=== PATIENT | male | born 1925 | race Caucasian/White ===

== ENCOUNTER 2016-10-08 14:17 | Inpatient (IN) | payer OTHER, MEDICARE ==
[~2016-10-08 14:17] MED LIST: VANCOMYCIN HCL INJ 1000 MG VIAL IV ONE
--- NOTE | 2016-10-08 16:03 | ER Document Report ---
ED Medical Screen (RME) - General Chief Complaint: Urinary Incontinence Stated Complaint: POSSIBLE UTI Time seen by provider: 16:03 TRAVEL OUTSIDE OF THE [place] IN LAST 30 DAYS: No - HPI Patient complains to provider of: POSSIBLE UTI, NOT ACTING USUAL SELF Onset: Last week Onset/Duration: Gradual Quality of pain: No pain Severity: None Pain Level: Denies Exacerbated by: Denies Relieved by: Denies Recently seen / treated by doctor: Yes Notes: 10/08/16 16:15 [facility], SENT TO ER FOR EVALUATION, PT SEEMS CONFUSED, NOT ACTING USUAL SELF. HAS BEEN VOIDING ON SELF, NOT EATING WELL. - Related Data Smoking: Non-smoker Frequency of alcohol use: None Drug Abuse: None Pertinent History: POOR HISTORIAM, FAMILY NOT SURE OF MEDICAL HX. Allergies/Adverse Reactions: No Known Allergies Allergy (Verified 10/08/16 14:49) Past Medical History - Past Medical History Cardiac Medical History: Reports: Hx Hypertension Pulmonary Medical History: Denies: Hx Tuberculosis Neurological Medical History: Denies: Hx Seizures Renal/ Medical History: Reports: Hx Renal Insufficiency Musculoskeltal Medical History: Reports Hx Arthritis Psychiatric Medical History: Reports: Hx Depression Past Surgical History: Reports: Hx Orthopedic Surgery - Immunizations Hx Diphtheria, Pertussis, Tetanus Vaccination: Yes Physical Exam - Vital signs Vitals: Temp Pulse Resp BP Pulse Ox 97.9 F 110 H 18 135/56 H 97 10/08/16 14:37 10/08/16 14:37 10/08/16 14:37 10/08/16 14:37 10/08/16 14:37 Course - Vital Signs Vital signs: Temp Pulse Resp BP Pulse Ox 97.9 F 110 H 18 135/56 H 97 10/08/16 14:37 10/08/16 14:37 10/08/16 14:37 10/08/16 14:37 10/08/16 14:37
[2016-10-08 16:50] LABS: HEMATOCRIT 29.7 % (37.9-51.0); HEMOGLOBIN 10.1 g/dL (13.5-17.0); HGB HCT DIFFERENCE 0.6; MEAN CORPUSCULAR HEMOGLOBIN 29.6 pg (27.0-33.4); MEAN CORPUSCULAR HGB CONC 33.9 g/dL (32.0-36.0); MEAN CORPUSCULAR VOLUME 87 fl (80-97); RED CELL DISTRIBUTION WIDTH 14.8 % (11.5-14.0)
[2016-10-08 17:04] LABS: ALANINE AMINOTRANSFERASE 51 U/L (21-72); ALBUMIN 2.7 g/dL (3.5-5.0); ALKALINE PHOSPHATASE 123 U/L (38-126); ANION GAP 17 (5-19); ASPARTATE AMINO TRANSFERASE 48 U/L (17-59); BILIRUBIN,TOTAL 0.8 mg/dL (0.2-1.3); BLOOD UREA NITROGEN 85 mg/dL (7-20); CALCIUM 8.2 mg/dL (8.4-10.2); CARBON DIOXIDE 20 mmol/L (22-30); CHLORIDE 101 mmol/L (98-107); CREATINE KINASE 48 U/L (55-170); CREATININE RESULT 3.13 mg/dL (0.52-1.25); GLUCOSE 111 mg/dL (75-110); POTASSIUM 5.3 mmol/L (3.6-5.0); SODIUM 138.1 mmol/L (137-145); TOTAL PROTEIN 6.3 g/dL (6.3-8.2)
[2016-10-08 17:06] LABS: APPEARANCE,URINE SLIGHTLY-CLOUDY; BILIRUBIN,URINE NEGATIVE (NEGATIVE); GLUCOSE, URINE NEGATIVE (NEGATIVE); KETONES,URINE NEGATIVE (NEGATIVE); LEUKOCYTE ESTERASE,URINE NEGATIVE (NEGATIVE); NITRITE,URINE NEGATIVE (NEGATIVE); PROTEIN,URINE 30 mg/dL (NEGATIVE); URINE SPECIFIC GRAVITY 1.017
[2016-10-08 17:16] LABS: CREATINE KINASE MB 0.97 ng/mL (<4.55)
[2016-10-08 17:21] LABS: TROPONIN I 0.06 ng/mL
[2016-10-08 17:28] LABS: BAND NEUTROPHILS % (MANUAL) 1 % (3-5); BASOPHILS % (MANUAL) 0 % (0-2); EOSINOPHILS % (MANUAL) 0 % (0-6); LYMPHOCYTES % (MANUAL) 3 % (13-45); TOTAL CELLS COUNTED 100
[2016-10-08 17:31] LABS: SMUDGE CELLS PRESENT; TOXIC GRANULATION 1+; TOXIC VACUOLATION PRESENT
[2016-10-08 17:32] LABS: ANISOCYTOSIS SLIGHT; HELMET CELLS SLIGHT; PLATELET CLUMPS PRESENT; POIKILOCYTOSIS 1+; POLYCHROMASIA SLIGHT; SCHISTOCYTES SLIGHT
[2016-10-08 17:34] LABS: TARGET CELLS 3+
[2016-10-08 17:38] LABS: WHITE BLOOD COUNT 41.8 10^3/uL (4.0-10.5)
[2016-10-08] MEDS ORDERED: VANCOMYCIN HCL INJ 1000 MG VIAL IV ONE (18:02)
[2016-10-08] MEDS ORDERED: LEVOFLOXACIN 750 MG/D5W RTU 150 ML IV ONE (18:02)
[2016-10-08] MEDS ORDERED: CEFOTAXIME INJ 1 GM VIAL IV ONE ×2 (18:02→23:45)
--- NOTE | 2016-10-08 18:32 | ER Document Report ---
ED General - General Chief Complaint: Urinary Incontinence Stated Complaint: POSSIBLE UTI Time seen by provider: 18:30 Mode of Arrival: Medic Information source: Patient, Relative Notes: This is an 89-year-old man with a history of hypertension who is brought in by EMS with increased weakness, cough, difficulty ambulating. The patient lives alone and fell 2 weeks ago and was evaluated by EMS and did not go to the hospital at that time. Family notes that he has had significant decline in activity and has become confused since that fall. They also note that his had an increased cough and appears shortness of breath at times. Symptoms had progressively worsened and he was evaluated at the [place] by Dr. Rivera and referred to the ER. TRAVEL OUTSIDE OF THE [place] IN LAST 30 DAYS: No - HPI Onset: Other Onset/Duration: Gradual - Prior to weeks Quality of pain: No pain Severity: None Pain Level: Denies Associated symptoms: Chills, Nonproductive cough, Fever, Shortness of breath Exacerbated by: Movement, Walking Relieved by: Denies Similar symptoms previously: No Recently seen / treated by doctor: Yes - Related Data Allergies/Adverse Reactions: No Known Allergies Allergy (Verified 10/08/16 14:49) Home Medications: Current Home Medications Calcitriol [Rocaltrol 0.25 mcg Capsule] 0.25 mcg PO DAILY 10/08/16 [History] Cyanocobalamin (Vitamin B-12) [Vitamin B-12 1000 mcg Tablet] 1,000 mcg PO DAILY 10/08/16 [History] Fluoxetine HCl [Prozac] 40 mg PO DAILY 10/08/16 [History] Lisinopril [Prinivil 10 mg Tablet] 20 mg PO DAILY 10/08/16 [History] Tramadol HCl [Ultram 50 mg Tablet] 50 mg PO Q8HP PRN 10/08/16 [History] Past Medical History - General Information source: Parent - Social History Smoking Status: Smoker,Current Status Unk Cigarette use (# per day): No Chew tobacco use (# tins/day): No Smoking Education Provided: No Frequency of alcohol use: None Drug Abuse: None Lives with: Family Family History: Reviewed & Not Pertinent Patient has suicidal ideation: No Patient has homicidal ideation: No - Past Medical History Cardiac Medical History: Reports: Hx Hypertension Pulmonary Medical History: Denies: Hx Tuberculosis Neurological Medical History: Denies: Hx Seizures Renal/ Medical History: Reports: Hx Renal Insufficiency Musculoskeltal Medical History: Reports Hx Arthritis Psychiatric Medical History: Reports: Hx Depression Past Surgical History: Reports: Hx Orthopedic Surgery - Immunizations Hx Diphtheria, Pertussis, Tetanus Vaccination: Yes Hx Pneumococcal Vaccination: 03/05/14 Review of Systems - Review of Systems Constitutional: denies: Chills, Fever EENT: No symptoms reported Cardiovascular: See HPI Respiratory: See HPI Gastrointestinal: No symptoms reported Genitourinary: No symptoms reported Male Genitourinary: No symptoms reported Musculoskeletal: No symptoms reported Skin: No symptoms reported Hematologic/Lymphatic: No symptoms reported Neurological/Psychological: Confusion, Weakness Physical Exam - Vital signs Vitals: Temp Pulse Resp BP Pulse Ox 97.9 F 110 H 18 135/56 H 97 10/08/16 14:37 10/08/16 14:37 10/08/16 14:37 10/08/16 14:37 10/08/16 14:37 Notes: Physical exam: GENERAL: 89-year-old man, alert and oriented 3, does appear weak and dehydrated HEAD: Atraumatic, normocephalic. EYES: Pupils equal round and reactive to light, extraocular movements intact, sclera anicteric, conjunctiva are normal. ENT: oropharynx clear without exudates. Dry mucous membranes. NECK: Normal range of motion, supple without lymphadenopathy or JVD. LUNGS: Decreased breath sounds in the left side. HEART: Regular rate and rhythm without murmurs, rubs or gallops. ABDOMEN: Soft, nontender, normoactive bowel sounds. No guarding, no rebound. No masses appreciated. EXTREMITIES: Normal range of motion, no pitting or edema. No clubbing or cyanosis. NEUROLOGICAL: Cranial nerves II through XII grossly intact. Normal speech, gait not tested PSYCH: Normal mood, normal affect. SKIN: Warm, Dry, normal turgor, no rashes or lesions noted. Course - Vital Signs Vital signs: Temp Pulse Resp BP Pulse Ox 97.9 F 110 H 18 143/90 H 96 10/08/16 14:37 10/08/16 14:37 10/08/16 19:01 10/08/16 19:01 10/08/16 19:01 - Laboratory Result Diagrams: 10/08/16 16:25 10/08/16 16:25 Laboratory results interpreted by me: 10/08/16 10/08/16 10/08/16 16:25 16:25 16:25 WBC 41.8 H* RBC 3.40 L Hgb 10.1 L Hct 29.7 L RDW 14.8 H Plt Count 667 H Seg Neuts % (Manual) 86 H Band Neutrophils % 1 L Lymphocytes % (Manual) 3 L Abs Neuts (Manual) 36.4 H Abs Monocytes (Manual) 3.8 H Potassium 5.3 H Carbon Dioxide 20 L BUN 85 H Creatinine 3.13 H Est GFR ( Amer) 23 L Est GFR (Non-Af Amer) 19 L Glucose 111 H Calcium 8.2 L Creatine Kinase 48 L Albumin 2.7 L Urine Protein 30 H Urine Urobilinogen 2.0 H - Diagnostic Test Radiology reviewed: Image reviewed, Reports reviewed - Chest x-ray and CT show pneumonia to the right lung with pleural effusion. CT of the head shows chronic changes Critical Care Note - Critical Care Note Total time excluding time spent on procedures (mins): 60 Discharge - Discharge Clinical Impression: pneumonia, dehydration Condition: Serious Disposition: ADMITTED INPATIENT Admitting Provider: Hospitalist - Dr Segura Unit Admitted: [facility]
[2016-10-08] MEDS ORDERED: ACETAMINOPHEN 325 MG TABLET PO PRN (18:50)
[2016-10-08] MEDS ORDERED: ONDANSETRON 4 MG TAB.RAPDIS PO PRN (18:50)
[2016-10-08] MEDS ORDERED: ALBUTEROL SULFATE 0.083% NEB 2.5 MG/3 ML AMPUL NEB PRN (18:50)
[2016-10-08] MEDS ORDERED: TRAMADOL HCL 50 MG TABLET PO PRN (18:55)
[2016-10-08] MEDS ORDERED: ENOXAPARIN SODIUM INJ 30 MG/0.3 ML DISP.SYRIN SUBCUT ONE ×2 (19:00→23:45)
--- NOTE | 2016-10-08 19:09 | PDOC H&P ---
History of Present Illness Admission Date/PCP: 10/08/2016. Patient is followed at the [place] [facility] Patient complains of: Pneumonia History of Present Illness: AD LEÓN is a 89 year old male who is followed at the [place] [facility] who presents with pneumonia. The patient reports that 2 weeks ago he fell down was on the ground for an unspecified period of time. Difficulty getting back up had called EMS. After that time he has Antonietta bed quite a bit has been given a very little. He reports she's felt more fatigued and has had a nonproductive cough. Denies have any fevers or chills. He also has had some right-sided pleuritic chest pain. Patient presented to the [place] [facility] today and he was sent here for further evaluation. He is found to have a right-sided pneumonia along with a probable pleural effusion. The patient also is noted have an elevated white blood cell count and he denies any history of any blood dyscrasias previously. Past Medical History Cardiac Medical History: Reports: Hypertension Pulmonary Medical History: Reports: None Denies: Tuberculosis EENT Medical History: Reports: None Neurological Medical History: Denies: Seizures Endocrine Medical History: Reports: None Renal/ Medical History: Reports: Chronic Kidney Disease Malignancy Medical History: Reports: None GI Medical History: Reports: None Musculoskeltal Medical History: Reports: Arthritis Skin Medical History: Reports: None Psychiatric Medical History: Reports: Depression Infectious Medical History: Reports: None Past Surgical History Past Surgical History: Reports: Orthopedic Surgery Social History Smoking Status: Former Smoker Frequency of Alcohol Use: Heavy - None for the last 2 weeks however. Hx Recreational Drug Use: No Drugs: None Hx Prescription Drug Abuse: No - Advance Directive Resuscitation Status: Full Code Family History Family History: Mother in her 70s and had no chronic health problems. Father at a young age during World War II Parental Family History Reviewed: Yes Children Family History Reviewed: No Sibling(s) Family History Reviewed.: No Medication/Allergy Home Medications: Fluoxetine HCl [Prozac] 40 mg PO DAILY 11/11/13 Tramadol HCl [Ultram 50 mg Tablet] 50 mg PO TIDP PRN 03/02/14 Hydrocodone Bit/Acetaminophen [Hydrocodon-Acetaminophen 5-325] 1 each PO Q6H Lisinopril 20 mg PO DAILY 08/24/14 Sulfamethoxazole/Trimethoprim [Bactrim Ds Tablet] 1 each PO BID #20 tablet 08/24 Calcitriol 1 cap PO DAILY 09/04/14 Cyanocobalamin (Vitamin B-12) [B-12] 1,000 mcg PO DAILY 09/04/14 Allergies/Adverse Reactions: No Known Allergies Allergy (Verified 10/08/16 14:49) Review of Systems Constitutional: PRESENT: fatigue, weakness. ABSENT: fever(s), headache(s), weight gain, weight loss Eyes: ABSENT: visual disturbances Ears: ABSENT: hearing changes Cardiovascular: PRESENT: chest pain - Right-sided pleuritic chest pain., dyspnea on exertion. ABSENT: edema, orthropnea, palpitations Respiratory: PRESENT: cough, dyspnea, sputum. ABSENT: hemoptysis Gastrointestinal: ABSENT: abdominal pain, constipation, diarrhea, hematemesis, hematochezia, nausea, vomiting Genitourinary: ABSENT: dysuria, hematuria Musculoskeletal: PRESENT: other - Right-sided pleuritic chest pain. Integumentary: ABSENT: rash, wounds Neurological: ABSENT: abnormal gait, abnormal speech, confusion, dizziness, focal weakness, syncope Psychiatric: PRESENT: depression Endocrine: ABSENT: cold intolerance, heat intolerance, polydipsia, polyuria Hematologic/Lymphatic: ABSENT: easy bleeding, easy bruising Physical Exam Vital Signs: Temp Pulse Resp BP Pulse Ox 97.9 F 110 H 18 135/56 H 97 10/08/16 14:37 10/08/16 14:37 10/08/16 14:37 10/08/16 14:37 10/08/16 14:37 Intake & Output 10/07/16 10/08/16 10/09/16 06:59 06:59 06:59 Weight 101.2 kg General appearance: PRESENT: no acute distress, disheveled Head exam: PRESENT: atraumatic, normocephalic Eye exam: PRESENT: conjunctiva pink, EOMI, PERRLA. ABSENT: scleral icterus Ear exam: PRESENT: normal external ear exam Mouth exam: PRESENT: moist, tongue midline Neck exam: ABSENT: carotid bruit, JVD, lymphadenopathy, thyromegaly Respiratory exam: PRESENT: decreased breath sounds - Decreased breath sounds in the right base., rales - Right lung. Cardiovascular exam: PRESENT: RRR. ABSENT: diastolic murmur, rubs, systolic murmur Pulses: PRESENT: normal dorsalis pedis pul Vascular exam: PRESENT: normal capillary refill GI/Abdominal exam: PRESENT: normal bowel sounds, soft. ABSENT: distended, guarding, mass, organolmegaly, rebound, tenderness Rectal exam: PRESENT: deferred Extremities exam: ABSENT: calf tenderness, clubbing, pedal edema Neurological exam: PRESENT: alert, awake, oriented to person, oriented to place , oriented to time, oriented to situation, CN II-XII grossly intact. ABSENT: motor sensory deficit Psychiatric exam: PRESENT: appropriate affect Skin exam: PRESENT: dry, intact, warm. ABSENT: cyanosis, rash Results Laboratory Results: 10/08/16 16:25 10/08/16 16:25 10/08/16 10/08/16 10/08/16 16:25 16:25 16:25 WBC 41.8 H* RBC 3.40 L Hgb 10.1 L Hct 29.7 L MCV 87 MCH 29.6 MCHC 33.9 RDW 14.8 H Plt Count 667 H Seg Neutrophils % Not Reportable Lymphocytes % Not Reportable Monocytes % Not Reportable Eosinophils % Not Reportable Basophils % Not Reportable Absolute Neutrophils Not Reportable Absolute Lymphocytes Not Reportable Absolute Monocytes Not Reportable Absolute Eosinophils Not Reportable Absolute Basophils Not Reportable Sodium 138.1 Potassium 5.3 H Chloride 101 Carbon Dioxide 20 L Anion Gap 17 BUN 85 H Creatinine 3.13 H Est GFR ( Amer) 23 L Est GFR (Non-Af Amer) 19 L Glucose 111 H Calcium 8.2 L Total Bilirubin 0.8 AST 48 ALT 51 Alkaline Phosphatase 123 Total Protein 6.3 Albumin 2.7 L Urine Color YELLOW Urine Appearance SLIGHTLY-CLOUDY Urine pH 5.0 Ur Specific [place] 1.017 Urine Protein 30 H Urine Glucose (UA) NEGATIVE Urine Ketones NEGATIVE Urine Blood NEGATIVE Urine Nitrite NEGATIVE Ur Leukocyte Esterase NEGATIVE Urine WBC (Auto) 1 Urine RBC (Auto) 1 10/08/16 10/08/16 16:25 16:25 Creatine Kinase 48 L CK-MB (CK-2) 0.97 Troponin I 0.060 Impressions: Chest X-Ray 10/08/16 16:12 IMPRESSION: Moderate-large right lower lobar pneumonia/ effusion. Recommend continued radiologic surveillance including follow-up radiographs in 7-12 weeks. Assessment & Plan - Diagnosis (1) Pneumonia Is this a current diagnosis for this admission?: YesPlan: Patient has right-sided pneumonia with probable effusion. He has been in bed recently and the possibility of the patient having a pulmonary embolism is considered however given his elevated white count generalized fatigue diagnosis of pneumonia is more likely. We will treat him with Levaquin for presumed gram- positive cocci pneumonia. If he does not improve we will obtain a chest CT to evaluate for possible effusion requiring thoracentesis. (2) Hypertension Is this a current diagnosis for this admission?: YesPlan: We will hold the lisinopril for now in light of his blood pressure being normal and the elevated creatinine. (3) Chronic renal failure, stage 4 (severe) Is this a current diagnosis for this admission?: YesPlan: Patient has stage IV chronic renal failure. He also has acute worsening. We will give IV fluids overnight and watch closely. - Time Time Spent: 50 to 70 Minutes - Inpatient Certification Medical Necessity: Need For IV Fluids, Need for IV Antibiotics
[2016-10-08] MEDS ORDERED: LEVOFLOXACIN 750 MG/D5W RTU 750 MG/150 ML RTUPB IV SCH (22:00)
[2016-10-09] MEDS ORDERED: VANCOMYCIN HCL INJ 1000 MG VIAL ONE (04:10)
[2016-10-09 07:47] LABS: HEMATOCRIT 25.9 % (37.9-51.0); HEMOGLOBIN 9.1 g/dL (13.5-17.0); HGB HCT DIFFERENCE 1.4; MEAN CORPUSCULAR HEMOGLOBIN 30.4 pg (27.0-33.4); MEAN CORPUSCULAR HGB CONC 35.2 g/dL (32.0-36.0); MEAN CORPUSCULAR VOLUME 86 fl (80-97); RED CELL DISTRIBUTION WIDTH 14.4 % (11.5-14.0)
[2016-10-09 07:52] LABS: ANION GAP 17 (5-19); BLOOD UREA NITROGEN 80 mg/dL (7-20); CALCIUM 7.6 mg/dL (8.4-10.2); CARBON DIOXIDE 17 mmol/L (22-30); CHLORIDE 105 mmol/L (98-107); CREATININE RESULT 2.77 mg/dL (0.52-1.25); GLUCOSE 83 mg/dL (75-110); POTASSIUM 4.5 mmol/L (3.6-5.0); SODIUM 138.6 mmol/L (137-145)
[2016-10-09 08:02] LABS: WHITE BLOOD COUNT 37.4 10^3/uL (4.0-10.5)
[2016-10-09 08:03] LABS: BASOPHILS % (MANUAL) 0 % (0-2); EOSINOPHILS % (MANUAL) 0 % (0-6); LYMPHOCYTES % (MANUAL) 5 % (13-45); TOTAL CELLS COUNTED 100
[2016-10-09 08:05] LABS: POIKILOCYTOSIS 2+
[2016-10-09 08:06] LABS: ANISOCYTOSIS SLIGHT; BURR CELLS SLIGHT; TARGET CELLS 2+; TEAR DROP CELLS SLIGHT
[2016-10-09] MEDS: FLUOXETINE HCL 20 MG CAPSULE PO SCH (10:00)
[2016-10-09] MEDS: CALCITRIOL 0.25 MCG CAPSULE PO SCH (10:00)
[2016-10-09] MEDS: ENOXAPARIN SODIUM INJ 30 MG/0.3 ML DISP.SYRIN SUBCUT SCH (10:00)
[2016-10-09 10:47] LABS: PATH REVIEW PATHOLOGIST REVIEWED
[2016-10-09] MEDS: CYANOCOBALAMIN (VITAMIN B-12) 1,000 MCG TABLET PO SCH (11:07)
--- NOTE | 2016-10-09 12:43 | PDOC PROGRESS REPORT ---
Subjective Progress Note for:: 10/09/16 Subjective:: His reports that he feels as if he has more energy today. Physical Exam Vital Signs: Temp Pulse Resp BP Pulse Ox 98.9 F 110 H 23 H 150/82 H 95 10/09/16 11:55 10/09/16 08:00 10/09/16 11:01 10/09/16 11:01 10/09/16 11:00 General appearance: PRESENT: no acute distress Eye exam: PRESENT: conjunctiva pink Mouth exam: PRESENT: dry mucosa Neck exam: ABSENT: JVD Respiratory exam: PRESENT: decreased breath sounds - Decreased breath sounds in the right base. Patient also has some rales in the right lung. Cardiovascular exam: PRESENT: RRR. ABSENT: diastolic murmur, rubs, systolic murmur GI/Abdominal exam: PRESENT: normal bowel sounds, soft. ABSENT: distended, guarding, mass, organolmegaly, rebound, tenderness Extremities exam: ABSENT: calf tenderness, clubbing, pedal edema Neurological exam: PRESENT: alert, awake, oriented to person, oriented to place , oriented to time, oriented to situation Psychiatric exam: PRESENT: appropriate affect Skin exam: PRESENT: dry, intact, warm. ABSENT: cyanosis, rash Results Laboratory Results: 10/09/16 07:08 10/09/16 07:08 10/09/16 10/09/16 07:08 07:08 WBC 37.4 H* RBC 3.00 L Hgb 9.1 L Hct 25.9 L MCV 86 MCH 30.4 MCHC 35.2 RDW 14.4 H Plt Count 540 H Seg Neutrophils % Not Reportable Lymphocytes % Not Reportable Monocytes % Not Reportable Eosinophils % Not Reportable Basophils % Not Reportable Absolute Neutrophils Not Reportable Absolute Lymphocytes Not Reportable Absolute Monocytes Not Reportable Absolute Eosinophils Not Reportable Absolute Basophils Not Reportable Sodium 138.6 Potassium 4.5 Chloride 105 Carbon Dioxide 17 L Anion Gap 17 BUN 80 H Creatinine 2.77 H Est GFR ( Amer) 26 L Est GFR (Non-Af Amer) 22 L Glucose 83 Calcium 7.6 L Impressions: Chest X-Ray 10/08/16 16:12 IMPRESSION: Moderate-large right lower lobar pneumonia/ effusion. Recommend continued radiologic surveillance including follow-up radiographs in 7-[address] 10/08/16 18:12 IMPRESSION: CHRONIC CHANGES OF ATROPHY AND MICROVASCULAR ISCHEMIA. NO ACUTE PROCESS. Chest CT 10/08/16 18:16 IMPRESSION: Moderate size right pleural effusion with apparent loculated components in components within the major and minor fissures. There is associated airspace consolidation which could represent atelectatic changes or pneumonic consolidation. The left lung is clear and well expanded. Other findings as noted above Assessment & Plan - Diagnosis (1) Pneumonia Is this a current diagnosis for this admission?: YesPlan: Patient has right-sided pneumonia with probable loculated effusion. He reports he feels much better since been started on Levaquin. We'll continue to follow closely and if he does not improve would consider a thoracentesis for drainage of the effusion. Given the probable loculation however this may need a VATS procedure.. (2) Hypertension Is this a current diagnosis for this admission?: YesPlan: We will hold the lisinopril for now in light of his blood pressure being normal and the elevated creatinine. (3) Chronic renal failure, stage 4 (severe) Is this a current diagnosis for this admission?: YesPlan: Patient has stage IV chronic renal failure with acute worsening failure patient has responded to IV fluids. - Time Time Spent with patient: 15-24 minutes - Inpatient Certification Medical Necessity: Need for IV Antibiotics
--- NOTE | 2016-10-09 15:43 | EKG REPORT ---
SEVERITY:- ABNORMAL ECG - SINUS TACHYCARDIA LEFT ATRIAL ABNORMALITY RBBB AND LAFB : Confirmed by: Bari Lange 09-Oct-2016 15:43:39
[2016-10-09] MEDS: NORMAL SALINE 1000 ML 1,000 ML IV PRN (18:38)
[2016-10-10] MEDS: NORMAL SALINE 1000 ML 1,000 ML IV PRN ×2 (02:18→11:29)
[2016-10-10 07:34] LABS: HEMATOCRIT 25.6 % (37.9-51.0); HEMOGLOBIN 8.9 g/dL (13.5-17.0); HGB HCT DIFFERENCE 1.1; MEAN CORPUSCULAR HEMOGLOBIN 29.6 pg (27.0-33.4); MEAN CORPUSCULAR HGB CONC 34.7 g/dL (32.0-36.0); MEAN CORPUSCULAR VOLUME 85 fl (80-97); RED CELL DISTRIBUTION WIDTH 14.6 % (11.5-14.0)
[2016-10-10 07:53] LABS: ANION GAP 13 (5-19); BLOOD UREA NITROGEN 67 mg/dL (7-20); CARBON DIOXIDE 17 mmol/L (22-30); CHLORIDE 111 mmol/L (98-107); CREATININE RESULT 2.62 mg/dL (0.52-1.25); GLUCOSE 89 mg/dL (75-110); POTASSIUM 4.6 mmol/L (3.6-5.0); SODIUM 140.5 mmol/L (137-145)
[2016-10-10 08:09] LABS: BAND NEUTROPHILS % (MANUAL) 1 % (3-5); BASOPHILS % (MANUAL) 0 % (0-2); EOSINOPHILS % (MANUAL) 2 % (0-6); LYMPHOCYTES % (MANUAL) 1 % (13-45); TOTAL CELLS COUNTED 100
[2016-10-10 08:10] LABS: POLYCHROMASIA 1+; TOXIC GRANULATION SLIGHT
[2016-10-10 08:11] LABS: ANISOCYTOSIS SLIGHT; TARGET CELLS 1+
[2016-10-10 08:13] LABS: WHITE BLOOD COUNT 32.6 10^3/uL (4.0-10.5)
[2016-10-10] MEDS: CYANOCOBALAMIN (VITAMIN B-12) 1,000 MCG TABLET PO SCH (09:12)
[2016-10-10] MEDS: FLUOXETINE HCL 20 MG CAPSULE PO SCH (09:12)
[2016-10-10] MEDS: ENOXAPARIN SODIUM INJ 30 MG/0.3 ML DISP.SYRIN SUBCUT SCH (09:12)
--- NOTE | 2016-10-10 10:14 | Physician Advisory Note ---
Physician Advisor ProgressNote .: Pursuant to the plan for [facility], I have reviewed the medical record for this patient. Physician Advisor Statement: Nice documentation of CKD Stage IV. Possible documentation opportunities if attending agrees: 1. "Acute RLL Pneumonia w/loculated effusion, suspect " [gram-negative? Staph/strep? ...] 2. "Acute Kidney Injury, likely due to , resolved" [ATN, Acute cortical necrosis, medullary necrosis, post-traumatic,...] 3. "Acute metabolic acidosis, likely due to " Coders: pt does meet SIRS criteria initially, & does have AMS initially along w /CARLOS, so from that info alone, he met both Sepsis-2 & Sepsis-3 criteria for dx of sepsis initially; however, he has been hypertensive the whole time and this experienced attg has not called the dx. Unless attending documents soon that he believes pt had "sepsis due to PNA, present on admission, despite neg BCs", I wouldn't pursue that dx with a query after d/c. Thanks for your help with documentation accuracy/specificity improvement! Maggie Patel MD
--- NOTE | 2016-10-10 11:07 | PDOC PROGRESS REPORT ---
Subjective Progress Note for:: 10/10/16 Subjective:: Complains of a nonproductive cough today. Physical Exam Vital Signs: Temp Pulse Resp BP Pulse Ox 98 F 110 H 18 126/79 H 96 10/10/16 00:00 10/10/16 00:00 10/10/16 00:00 10/10/16 00:00 10/10/16 00:00 Intake & Output 10/09/16 10/10/16 10/11/16 06:59 06:59 06:59 Intake Total 1740 Output Total 400 Balance 1340 Weight 98.4 kg General appearance: PRESENT: no acute distress Eye exam: PRESENT: conjunctiva pink Mouth exam: PRESENT: moist, tongue midline Neck exam: ABSENT: JVD Respiratory exam: PRESENT: decreased breath sounds - Decreased breath sounds in the right base with rales present on the right. Cardiovascular exam: PRESENT: RRR. ABSENT: diastolic murmur, rubs, systolic murmur GI/Abdominal exam: PRESENT: normal bowel sounds, soft. ABSENT: distended, guarding, mass, organolmegaly, rebound, tenderness Extremities exam: ABSENT: calf tenderness, clubbing, pedal edema Neurological exam: PRESENT: alert, awake, oriented to person, oriented to place , oriented to time, oriented to situation Psychiatric exam: PRESENT: appropriate affect Skin exam: PRESENT: dry, intact, warm. ABSENT: cyanosis, rash Results Laboratory Results: 10/10/16 07:03 10/10/16 07:03 10/10/16 10/10/16 07:03 07:03 WBC 32.6 H* RBC 3.00 L Hgb 8.9 L Hct 25.6 L MCV 85 MCH 29.6 MCHC 34.7 RDW 14.6 H Plt Count 532 H Seg Neutrophils % Not Reportable Lymphocytes % Not Reportable Monocytes % Not Reportable Eosinophils % Not Reportable Basophils % Not Reportable Absolute Neutrophils Not Reportable Absolute Lymphocytes Not Reportable Absolute Monocytes Not Reportable Absolute Eosinophils Not Reportable Absolute Basophils Not Reportable Sodium 140.5 Potassium 4.6 Chloride 111 H Carbon Dioxide 17 L Anion Gap 13 BUN 67 H Creatinine 2.62 H Est GFR ( Amer) 28 L Est GFR (Non-Af Amer) 23 L Glucose 89 Calcium 8.0 L Impressions: Chest X-Ray 10/08/16 16:12 IMPRESSION: Moderate-large right lower lobar pneumonia/ effusion. Recommend continued radiologic surveillance including follow-up radiographs in 7-[address] 10/08/16 18:12 IMPRESSION: CHRONIC CHANGES OF ATROPHY AND MICROVASCULAR ISCHEMIA. NO ACUTE PROCESS. Chest CT 10/08/16 18:16 IMPRESSION: Moderate size right pleural effusion with apparent loculated components in components within the major and minor fissures. There is associated airspace consolidation which could represent atelectatic changes or pneumonic consolidation. The left lung is clear and well expanded. Other findings as noted above Assessment & Plan - Diagnosis (1) Pneumonia Is this a current diagnosis for this admission?: YesPlan: Patient has right-sided pneumonia with probable loculated effusion. He reports he feels much better since been started on Levaquin. Pulmonary medicine Dr. Florentino has been consulted for the continued pleural effusion. The patient most likely will need a chest tube and possibly VATS procedure if he does not respond to the chest tube. (2) Hypertension Is this a current diagnosis for this admission?: Yes (3) Chronic renal failure, stage 4 (severe) Is this a current diagnosis for this admission?: YesPlan: Patient has stage IV chronic renal failure with acute worsening failure secondary to dehydration. The Patient has responded to IV fluids. - Time Time Spent with patient: 25-34 minutes - Inpatient Certification Medical Necessity: Need for IV Antibiotics
[2016-10-10] MEDS: CALCITRIOL 0.25 MCG CAPSULE PO SCH (11:29)
[2016-10-10 11:57] LABS: PROTHROMBIN TIME 18.6 SEC (11.4-15.4)
[2016-10-10 11:59] LABS: PARTIAL THROMBOPLASTIN TIME 54.1 SEC (23.5-35.8)
--- NOTE | 2016-10-10 16:12 | PDOC TRANSFER SUMMARY ---
General Admission Date/PCP: 10/08/16 18:50 DWIGHT PUENTE MD Admission Date: 10/08/16 Transfer Date: 10/11/16 Accepting Facility: [facility] Accepting Physician: dr Mccauley Resuscitation Status: Full Code - Transfer Diagnosis (1) Pneumonia Current Visit: Yes Diagnosis Summary: With loculated right-sided pleural effusion. (2) Hypertension Current Visit: Yes (3) Chronic renal failure, stage 4 (severe) Current Visit: Yes - Transfer Medications Home Medications: Calcitriol [Rocaltrol 0.25 mcg Capsule] 0.25 mcg PO DAILY 10/08/16 Cyanocobalamin (Vitamin B-12) [Vitamin B-12 1000 mcg Tablet] 1,000 mcg PO DAILY 10/08/16 Fluoxetine HCl [Prozac] 40 mg PO DAILY 10/08/16 Lisinopril [Prinivil 10 mg Tablet] 20 mg PO DAILY 10/08/16 Tramadol HCl [Ultram 50 mg Tablet] 50 mg PO Q8HP PRN 10/08/16 Transfer Medications: Current Medications Acetaminophen (Tylenol 325 Mg Tablet) 650 mg PO Q4HP PRN PRN Reason: FOR PAIN OR TEMP Stop: 11/07/16 18:49 Albuterol (Ventolin 0.083% Neb 2.5 Mg/3 Ml Ampul) 2.5 mg NEB RTQ4HP PRN PRN Reason: FOR WHEEZING Stop: 11/07/16 18:49 Calcitriol (Rocaltrol 0.25 Mcg Capsule) 0.25 mcg PO DAILY RODNEY Stop: 11/08/16 09:59 Last Admin: 10/10/16 11:29 Dose: 0.25 mcg Cyanocobalamin (Vitamin B-12 1000 Mcg Tablet) 1,000 mcg PO DAILY RODNEY Stop: 11/08/16 09:59 Last Admin: 10/10/16 09:12 Dose: 1,000 mcg Enoxaparin Sodium (Lovenox Inj 30 Mg/0.3 Ml Disp.Syrin) 30 mg SUBCUT QAM RODNEY Stop: 11/08/16 07:59 Last Admin: 10/10/16 09:12 Dose: 30 mg Fluoxetine HCl (Prozac 20 Mg Capsule) 40 mg PO DAILY RODNEY Stop: 11/08/16 09:59 Last Admin: 10/10/16 09:12 Dose: 40 mg Sodium Chloride (Nacl 0.9% 1000 Ml Iv Soln) 1,000 mls @ 125 mls/hr IV CONTINUOUS PRN PRN Reason: THIS MED IS NOT "PRN" Stop: 11/07/16 18:49 Last Admin: 10/10/16 11:29 Dose: 1,000 ml Levofloxacin (Levaquin 500 Mg Tablet) 500 mg PO Q2D@2200 RODNEY Stop: 10/17/16 21:59 Ondansetron HCl (Zofran Odt 4 Mg Tablet) 4 mg PO Q6HP PRN PRN Reason: FOR NAUSEA/VOMITING Stop: 11/07/16 18:49 Tramadol HCl (Ultram 50 Mg Tablet) 50 mg PO TIDP PRN PRN Reason: PAIN Stop: 10/15/16 18:54 - Allergies Allergies/Adverse Reactions: No Known Allergies Allergy (Verified 10/08/16 14:49) Hospital Course Hospital Course: 89-year-old gentleman who presents with a two-week history feeling fatigued and tired along with a productive cough. Patient was found have a white count of 40 ,000 along with a right-sided pneumonia and pleural effusion. The patient had a chest CT which did show there to be a loculated effusion. Given his age the patient was started on Levaquin to see if this would help to resolve his pneumonia fairly quickly and his pleural effusion was not addressed initially. The patient had a slight improvement in his white blood cell count however it still remained over 30,000 and because of this, it was felt that the pleural effusion most likely need to be drained and may even represent an empyema. Pulmonary medicine was consulted and they recommended chest tube drainage. The case was discussed with general surgery and it was their opinion that given that it was loculated pleural effusion that the patient most likely would need a VATS procedure. We are unable to do the VATS procedure at this facility and I contacted [facility] and spoke with a Dr. Mann. He graciously agrees to accept the patient and his partner Dr. Mccauley will be seeing the patient tomorrow morning when a bed becomes available for a VATS procedure. The patient has had blood cultures and they've all been negative so far. Patient does have chronic renal failure stage IV and he has had problems with a metabolic acidosis but no evidence for volume overload. Patient also has hypertension which has been stable. Patient prior to this admission has been a highly functional person and has lived alone. 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 His last dose of Lovenox was the morning of 10/10/2016. Physical Exam Vital Signs: Temp Pulse Resp BP Pulse Ox 98.2 F 101 H 16 152/94 H 96 10/10/16 08:44 10/10/16 15:24 10/10/16 15:24 10/10/16 08:44 10/10/16 15:24 Intake & Output 10/09/16 10/10/16 10/11/16 06:59 06:59 06:59 Intake Total 1740 Output Total 400 Balance 1340 Weight 98.4 kg General appearance: PRESENT: no acute distress Eye exam: PRESENT: conjunctiva pink Mouth exam: PRESENT: moist, tongue midline Neck exam: ABSENT: JVD Respiratory exam: PRESENT: decreased breath sounds - Decreased breath sounds at the right base. Cardiovascular exam: PRESENT: RRR. ABSENT: diastolic murmur, rubs, systolic murmur Vascular exam: PRESENT: normal capillary refill GI/Abdominal exam: PRESENT: normal bowel sounds, soft. ABSENT: distended, guarding, mass, organolmegaly, rebound, tenderness Extremities exam: ABSENT: calf tenderness, clubbing, pedal edema Neurological exam: PRESENT: alert, awake, oriented to person, oriented to place , oriented to time, oriented to situation Psychiatric exam: PRESENT: appropriate affect Skin exam: PRESENT: dry, intact, warm. ABSENT: cyanosis, rash Results Laboratory Results: 10/10/16 07:03 10/10/16 07:03 10/10/16 10/10/16 07:03 07:03 WBC 32.6 H* RBC 3.00 L Hgb 8.9 L Hct 25.6 L MCV 85 MCH 29.6 MCHC 34.7 RDW 14.6 H Plt Count 532 H Seg Neutrophils % Not Reportable Lymphocytes % Not Reportable Monocytes % Not Reportable Eosinophils % Not Reportable Basophils % Not Reportable Absolute Neutrophils Not Reportable Absolute Lymphocytes Not Reportable Absolute Monocytes Not Reportable Absolute Eosinophils Not Reportable Absolute Basophils Not Reportable Sodium 140.5 Potassium 4.6 Chloride 111 H Carbon Dioxide 17 L Anion Gap 13 BUN 67 H Creatinine 2.62 H Est GFR ( Amer) 28 L Est GFR (Non-Af Amer) 23 L Glucose 89 Calcium 8.0 L Impressions: Chest X-Ray 10/08/16 16:12 IMPRESSION: Moderate-large right lower lobar pneumonia/ effusion. Recommend continued radiologic surveillance including follow-up radiographs in 7-[address] 10/08/16 18:12 IMPRESSION: CHRONIC CHANGES OF ATROPHY AND MICROVASCULAR ISCHEMIA. NO ACUTE PROCESS. Chest CT 10/08/16 18:16 IMPRESSION: Moderate size right pleural effusion with apparent loculated components in components within the major and minor fissures. There is associated airspace consolidation which could represent atelectatic changes or pneumonic consolidation. The left lung is clear and well expanded. Other findings as noted above Plan Discharge Plan: The patient is to be transferred to [facility] when a bed becomes available. The accepting physician is Dr. Mccauley Time Spent: Greater than 30 Minutes
--- NOTE | 2016-10-10 16:42 | PDOC CONSULTATION ---
Consultation Consult Date: 10/10/16 Attending physician:: GENE REYES Consult reason:: Right thoracic loculated effusion History of Present Illness Admission Date/PCP: 10/08/16 18:50 DWIGHT PUENTE MD History of Present Illness: AD LEÓN is a 89 year old male who is followed at the [facility] who presents with pneumonia. The patient reports that 2 weeks ago he fell down was on the ground for an unspecified period of time. Difficulty getting back up had called EMS. After that time he has Antonietta bed quite a bit has been given a very little. He reports she's felt more fatigued and has had a nonproductive cough. Denies have any fevers or chills. He also has had some right-sided pleuritic chest pain. Patient presented to the [place] clinic today and he was sent here for further evaluation. He is found to have a right-sided pneumonia along with a probable pleural effusion. The patient also is noted have an elevated white blood cell count and he denies any history of any blood dyscrasias previously. Surgeons addendum: The patient has had a problem for approximately 2 weeks. He is now hospitalized with pneumonia parapneumonic fluid, and clinical and serologic is consistent with sepsis due to an area infection, high probability of empyema. Past Medical History Cardiac Medical History: Reports: Hypertension Pulmonary Medical History: Reports: None Denies: Tuberculosis EENT Medical History: Reports: None Neurological Medical History: Denies: Seizures Endocrine Medical History: Reports: None Renal/ Medical History: Reports: Chronic Kidney Disease Malignancy Medical History: Reports: None GI Medical History: Reports: None Musculoskeltal Medical History: Reports: Arthritis Skin Medical History: Reports: None Psychiatric Medical History: Reports: Depression Infectious Medical History: Reports: None Past Surgical History Past Surgical History: Reports: Orthopedic Surgery Social History Lives with: Family Smoking Status: Never Smoker Frequency of Alcohol Use: Occasional Hx Recreational Drug Use: No Drugs: None Hx Prescription Drug Abuse: No - Advance Directive Resuscitation Status: Full Code Family History Family History: Reviewed & Not Pertinent Parental Family History Reviewed: Yes Children Family History Reviewed: Yes Sibling(s) Family History Reviewed.: Yes Medication/Allergy Home Medications: Calcitriol [Rocaltrol 0.25 mcg Capsule] 0.25 mcg PO DAILY 10/08/16 Cyanocobalamin (Vitamin B-12) [Vitamin B-12 1000 mcg Tablet] 1,000 mcg PO DAILY 10/08/16 Fluoxetine HCl [Prozac] 40 mg PO DAILY 10/08/16 Lisinopril [Prinivil 10 mg Tablet] 20 mg PO DAILY 10/08/16 Tramadol HCl [Ultram 50 mg Tablet] 50 mg PO Q8HP PRN 10/08/16 Allergies/Adverse Reactions: No Known Allergies Allergy (Verified 10/08/16 14:49) Physical Exam Vital Signs: Temp Pulse Resp BP Pulse Ox 98.2 F 101 H 16 152/94 H 96 10/10/16 08:44 10/10/16 15:24 10/10/16 15:24 10/10/16 08:44 10/10/16 15:24 Intake & Output 10/09/16 10/10/16 10/11/16 06:59 06:59 06:59 Intake Total 1740 Output Total 400 Balance 1340 Weight 98.4 kg General appearance: PRESENT: mild distress, other - Patient is to Head exam: PRESENT: other - Slight disconjugate gaze Ear exam: PRESENT: normal external ear exam Mouth exam: PRESENT: dry mucosa Neck exam: PRESENT: full ROM Respiratory exam: PRESENT: other - Breath sounds markedly diminished right side with accessory muscles utilized Cardiovascular exam: PRESENT: RRR GI/Abdominal exam: PRESENT: other - Soft nontender. Results Laboratory Results: 10/10/16 07:03 10/10/16 07:03 10/10/16 10/10/16 07:03 07:03 WBC 32.6 H* RBC 3.00 L Hgb 8.9 L Hct 25.6 L MCV 85 MCH 29.6 MCHC 34.7 RDW 14.6 H Plt Count 532 H Seg Neutrophils % Not Reportable Lymphocytes % Not Reportable Monocytes % Not Reportable Eosinophils % Not Reportable Basophils % Not Reportable Absolute Neutrophils Not Reportable Absolute Lymphocytes Not Reportable Absolute Monocytes Not Reportable Absolute Eosinophils Not Reportable Absolute Basophils Not Reportable Sodium 140.5 Potassium 4.6 Chloride 111 H Carbon Dioxide 17 L Anion Gap 13 BUN 67 H Creatinine 2.62 H Est GFR ( Amer) 28 L Est GFR (Non-Af Amer) 23 L Glucose 89 Calcium 8.0 L Impressions: Chest X-Ray 10/08/16 16:12 IMPRESSION: Moderate-large right lower lobar pneumonia/ effusion. Recommend continued radiologic surveillance including follow-up radiographs in 7-[address] 10/08/16 18:12 IMPRESSION: CHRONIC CHANGES OF ATROPHY AND MICROVASCULAR ISCHEMIA. NO ACUTE PROCESS. Chest CT 10/08/16 18:16 IMPRESSION: Moderate size right pleural effusion with apparent loculated components in components within the major and minor fissures. There is associated airspace consolidation which could represent atelectatic changes or pneumonic consolidation. The left lung is clear and well expanded. Other findings as noted above Surgeon comment: The right lung is atelectatic posteriorly and laterally IN: Moderate effusion with possible rind Assessment & Plan - Diagnosis (1) Pleural effusion Is this a current diagnosis for this admission?: YesPlan: 1. Fresh in is that of a parapneumonic effusion highly suspicious for empyema in a patient with clinical and serologic evidence of sepsis including leukocytosis, left shift, acidosis as well as abnormal vital signs. 2. Management strategies at this time include several options including thoracentesis, chest tube, and vats procedure. Given the timeframe of this process 1-2 weeks, I suspect we're dealing with a loculated effusion that would benefit from a VATS procedure. Therefore I discussed this with the patient and Dr. Domingo Dobbs, hospitalist, and have recommended transfer to a tertiary care institution the can provide this service. - Time Time Spent: 30 to 50 Minutes Critical Time spent with patient: 15-24 minutes
[2016-10-10 21:36] VITALS: BP 155/81
[2016-10-10] MEDS ORDERED: LEVOFLOXACIN 500 MG TABLET PO SCH (22:00)
== END 2016-10-10 20:30 | disposition short-term general hospital (02) | DRG 193 ==
LOC: ER 14:17 → EH 18:50 → 5 10-09 13:35
PROVIDERS: ADMIT Internal Medicine; ATTEND Internal Medicine
DX: J18.9 Pneumonia, unspecified organism (principal); J86.9 Pyothorax without fistula; J90 Pleural effusion, not elsewhere classified; E87.2 Acidosis; N18.4 Chronic kidney disease, stage 4 (severe); N17.9 Acute kidney failure, unspecified; I12.9 Hypertensive chronic kidney disease with stage 1 through stage 4 chronic kidney disease, or unspecified chronic kidney disease; E86.0 Dehydration; R41.0 Disorientation, unspecified; M19.90 Unspecified osteoarthritis, unspecified site; Z60.2 Problems related to living alone; Z75.1 Person awaiting admission to adequate facility elsewhere
CPT/HCPCS: 36415; 70450; 71010; 71250; 80048; 80053; 81001; 82550; 82553; 84484; 85025; 85610; 85730; 87040; 93005; 93010; 96365; 99291; G8996-GN; G8997-GN; G8998-GN; J1650; J1956; J3370; J7030